=== PATIENT | female | born 1935 | race Caucasian/White ===

== ENCOUNTER 2017-12-20 19:00 | Emergency (ER) | payer MEDICARE ==
[2017-12-20 19:27] LABS: BASOPHILS % (AUTO) 0.7 % (0.0-5.0); EOSINOPHILS % (AUTO) 1.5 % (0.0-8.0); HEMATOCRIT 38.5 % (36-48); LYMPHOCYTES % (AUTO) 22.7 % (21.0-51.0); MEAN CORPUSCULAR HEMOGLOBIN 33.3 pg (27.0-33.0); MEAN CORPUSCULAR HGB CONC 33.7 g/dL (32.0-36.0); MONOCYTES % (AUTO) 6.5 % (3.0-13.0); NEUTROPHILS % (AUTO) 68.6 % (40.0-77.0); PLATELET COUNT (AUTO) 258 K/uL (130-400); RED BLOOD CELL COUNT(AUTO) 3.89 MIL/uL (4.00-5.50); WHITE BLOOD COUNT (AUTO) 6.8 K/uL (4.8-10.8)
[2017-12-20 19:42] LABS: CREATININE 1.4 mg/dL (0.5-1.5); INR 0.97 (0.85-1.15); PARTIAL THROMBOPLASTIN TIME 26.2 SEC (26.3-35.5); POTASSIUM 4.3 mmol/L (3.5-5.1); PROTHROMBIN TIME 10.2 SEC (9.6-11.6)
[2017-12-20 19:53] LABS: ALBUMIN 3.3 g/dL (3.5-5.0); BILIRUBIN,TOTAL 0.3 mg/dL (0.2-1.0); TOTAL PROTEIN, SERUM 6.7 g/dL (6.0-8.3)
[2017-12-20 20:15] LABS: B-TYPE NATRIURETIC PEPTIDE 34 pg/mL (0-100)
== END 2017-12-20 21:54 | disposition home or self-care (01) ==
LOC: EDH 19:00
DX: R55 Syncope and collapse (principal); I10 Essential (primary) hypertension; E78.5 Hyperlipidemia, unspecified; Z98.890 Other specified postprocedural states
CPT/HCPCS: 36415; 70450; 71045; 80053; 82550; 83874; 83880; 84484; 85025; 85610; 85730; 93005; 94761

== ENCOUNTER → 2019-10-07 | Outpatient (CLI) | payer OTHER | END | disposition home or self-care (01) | LOC: OIH 14:00 | PROVIDERS: ATTEND Internal Medicine Cardiovascular Disease | DX: Z13.6 Encounter for screening for cardiovascular disorders (principal) | CPT/HCPCS: 75571 ==

== ENCOUNTER 2022-05-12 16:41 | Emergency (ER) | payer MEDICARE ==
[~2022-05-12] VITALS: Ht 162.6 cm; Wt 4.7 kg
[~2022-05-12 16:41] MED LIST: ACET-2247 PO; BIMA2.5D6 OP; BRIM5DRO21 OP; BRINOS OD; CHOL500051 PO; ESCI20TA38 PO; METO25TA6 PO; ONDA-104 PO
[2022-05-12 18:05] LABS: BASOPHILS % (AUTO) 0.6 % (0.0-5.0); EOSINOPHILS % (AUTO) 2.1 % (0.0-8.0); HEMATOCRIT 34.5 % (36-48); LYMPHOCYTES % (AUTO) 48.5 % (21.0-51.0); MEAN CORPUSCULAR HGB CONC 31.3 g/dL (32.0-36.0); MEAN CORPUSCULAR VOLUME 95.8 fL (79-99); MONOCYTES % (AUTO) 7.7 % (3.0-13.0); NEUTROPHILS % (AUTO) 40.8 % (40.0-77.0); PLATELET COUNT (AUTO) 355 K/uL (130-400); RED CELL DISTRIBUTION WIDTH 14.6 % (11.0-15.5); WHITE BLOOD COUNT (AUTO) 9.5 K/uL (4.8-10.8)
[2022-05-12 18:13] LABS: CREATININE 0.9 mg/dL (0.5-1.5); POTASSIUM 4.1 mmol/L (3.5-5.1)
[2022-05-12 18:17] LABS: INR 0.97 (0.85-1.15); PROTHROMBIN TIME 10.6 SEC (9.6-11.6)
[2022-05-12 18:18] LABS: ALBUMIN 2.2 g/dL (3.5-5.0); PARTIAL THROMBOPLASTIN TIME 29.4 SEC (26.3-35.5); TOTAL PROTEIN, SERUM 5.6 g/dL (6.0-8.3)
[2022-05-12] MEDS ORDERED: SUCRALFATE 1 GM TABLET PO ONE (20:00)
[2022-05-12] MEDS ORDERED: PANTOPRAZOLE 40 MG/VIAL ONE (20:12)
[2022-05-12] MEDS ORDERED: SUCRALFATE 1 GM TABLET ONE (20:13)
[2022-05-12] MEDS ORDERED: PANTOPRAZOLE 40 MG/VIAL IVP STA (20:18)
[2022-05-12 20:49] LABS: APPEARANCE,URINE CLEAR (CLEAR); BILIRUBIN,URINE NEGATIVE (NEGATIVE); COLOR,URINE LIGHT-YELLOW (YELLOW); GLUCOSE, URINE (UA) NEGATIVE (NEGATIVE); KETONES,URINE NEGATIVE (NEGATIVE); LEUKOCYTE ESTERASE ,URINE 250 Leu/uL (NEGATIVE); NITRATE,URINE NEGATIVE (NEGATIVE); OCCULT BLOOD,URINE SMALL (NEGATIVE); PH,URINE 6.5 (5.0-8.0); PROTEIN,URINE 10 mg/dL (NEGATIVE); UROBILINOGEN,URINE 3 mg/dL (0.2-1.0)
[2022-05-12 20:52] LABS: BACTERIA,URINE MOD /HPF (None Seen); RBC,URINE 0-1 /HPF (0-1); SQUAMOUS EPITHELIAL CELL,UR RARE /HPF (0-2)
[2022-05-12] MEDS ORDERED: CEFTRIAXONE 1G VIAL IVP STA (22:18)
[2022-05-12] MEDS ORDERED: CEFTRIAXONE 1G VIAL ONE (22:23)
[2022-05-12] MEDS ORDERED: CEPH500B PO (22:24)
[2022-05-12] MEDS ORDERED: OMEP20TA20 PO (22:24)
[2022-05-12 22:53] VITALS: BP 136/52
== END 2022-05-12 23:49 ==
LOC: EDH 16:41
DX: N39.0 Urinary tract infection, site not specified (principal); K29.70 Gastritis, unspecified, without bleeding; E78.00 Pure hypercholesterolemia, unspecified; I10 Essential (primary) hypertension; Z79.899 Other long term (current) drug therapy
CPT/HCPCS: 99285; 96374; 96375; 82270; 80053; 85025; 85610; 85730; 87077; 87088; 87186; 81001; 36415; J0696; C9113

== ENCOUNTER 2022-05-18 17:31 | Emergency (ER) | payer MEDICARE ==
[~2022-05-18] VITALS: Ht 167.6 cm; Wt 76.2 kg
[~2022-05-18 17:31] MED LIST changes: +CEPH500B PO; +OMEP20TA20 PO
[2022-05-18] MEDS ORDERED: 0.9%NACL 1000ML 1,000 ML IV SCH ×2 (18:00→19:30)
[2022-05-18 18:25] LABS: BASOPHILS % (AUTO) 0.6 % (0.0-5.0); EOSINOPHILS % (AUTO) 2.5 % (0.0-8.0); HEMATOCRIT 37.9 % (36-48); LYMPHOCYTES % (AUTO) 46.7 % (21.0-51.0); MEAN CORPUSCULAR HEMOGLOBIN 30.1 pg (27.0-33.0); MEAN CORPUSCULAR HGB CONC 31.4 g/dL (32.0-36.0); MEAN CORPUSCULAR VOLUME 95.7 fL (79-99); MONOCYTES % (AUTO) 7.6 % (3.0-13.0); NEUTROPHILS % (AUTO) 42.4 % (40.0-77.0); PLATELET COUNT (AUTO) 399 K/uL (130-400); RED BLOOD CELL COUNT(AUTO) 3.96 MIL/uL (4.00-5.50); RED CELL DISTRIBUTION WIDTH 14.4 % (11.0-15.5); WHITE BLOOD COUNT (AUTO) 10.1 K/uL (4.8-10.8)
[2022-05-18 18:36] LABS: POTASSIUM 3.8 mmol/L (3.5-5.1)
[2022-05-18 18:47] LABS: ALBUMIN 2.6 g/dL (3.5-5.0); TOTAL PROTEIN, SERUM 6.4 g/dL (6.0-8.3)
[2022-05-18 18:54] LABS: APPEARANCE,URINE TURBID (CLEAR); BILIRUBIN,URINE NEGATIVE (NEGATIVE); COLOR,URINE LIGHT-ORANGE (YELLOW); GLUCOSE, URINE (UA) NEGATIVE (NEGATIVE); KETONES,URINE NEGATIVE (NEGATIVE); LEUKOCYTE ESTERASE ,URINE 500 Leu/uL (NEGATIVE); NITRATE,URINE NEGATIVE (NEGATIVE); OCCULT BLOOD,URINE MODERATE (NEGATIVE); PH,URINE 5.5 (5.0-8.0); PROTEIN,URINE 50 mg/dL (NEGATIVE); UROBILINOGEN,URINE 0.2 mg/dL (0.2-1.0)
[2022-05-18 19:01] LABS: BACTERIA,URINE MOD /HPF (None Seen); MUCUS,URINE RARE LPF (None Seen); RBC,URINE 26-50 /HPF (0-1); SQUAMOUS EPITHELIAL CELL,UR MANY /HPF (0-2); WBC,URINE >100 /HPF (0-1); YEAST,URINE BUDDING FEW /HPF (None Seen)
[2022-05-18] MEDS ORDERED: CEFTRIAXONE 1G VIAL IVP STA (20:46)
[2022-05-18] MEDS ORDERED: CEPH500B PO (20:49)
[2022-05-18] MEDS: LINEZOLID 600 MG/ISO-OSM 300 ML IV SCH ×2 (21:00→21:01)
[2022-05-18] MEDS ORDERED: [UNRECOGNIZED DRUG - OTHER] IV SCH (21:08)
[2022-05-18] MEDS ORDERED: GENTAMICIN SULFATE IV SCH (21:08)
[2022-05-18] MEDS ORDERED: MACR100 PO (21:12)
[2022-05-18 22:12] VITALS: BP 145/53
== END 2022-05-18 23:22 | disposition home or self-care (01) ==
LOC: EDH 17:31
DX: S40.021A Contusion of right upper arm, initial encounter (principal); N39.0 Urinary tract infection, site not specified; I10 Essential (primary) hypertension; E78.00 Pure hypercholesterolemia, unspecified; R11.10 Vomiting, unspecified; Z79.899 Other long term (current) drug therapy; W18.39XA Other fall on same level, initial encounter; Y93.89 Activity, other specified; Y92.89 Other specified places as the place of occurrence of the external cause; Y99.8 Other external cause status
CPT/HCPCS: 99285; 84484; 80053; 83690; 85025; 87077; 87088; 87186; 82270; 81001; 36415; 71045; 70450; 72125; 96365; 96366; 96361; 93005; J7030; J1580; J0696; J2020

== ENCOUNTER 2022-06-01 12:16 | Emergency (ER) | payer MEDICARE ==
[~2022-06-01] VITALS: Ht 167.6 cm; Wt 79.4 kg
[~2022-06-01 12:16] MED LIST changes: +MACR100 PO
[2022-06-01] MEDS ORDERED: 0.9% NACL 500ML IV.SOLN 500 ML IV ONE (14:00)
[2022-06-01 14:27] LABS: BASOPHILS % (AUTO) 0.6 % (0.0-5.0); EOSINOPHILS % (AUTO) 2.8 % (0.0-8.0); HEMATOCRIT 36.7 % (36-48); MEAN CORPUSCULAR HEMOGLOBIN 30.1 pg (27.0-33.0); MEAN CORPUSCULAR HGB CONC 31.6 g/dL (32.0-36.0); MEAN CORPUSCULAR VOLUME 95.1 fL (79-99); MONOCYTES % (AUTO) 8.5 % (3.0-13.0); PLATELET COUNT (AUTO) 295 K/uL (130-400); RED BLOOD CELL COUNT(AUTO) 3.86 MIL/uL (4.00-5.50); RED CELL DISTRIBUTION WIDTH 14.6 % (11.0-15.5); WHITE BLOOD COUNT (AUTO) 8.3 K/uL (4.8-10.8)
[2022-06-01 14:29] LABS: APPEARANCE,URINE CLOUDY (CLEAR); BILIRUBIN,URINE NEGATIVE (NEGATIVE); COLOR,URINE LIGHT-YELLOW (YELLOW); GLUCOSE, URINE (UA) NEGATIVE (NEGATIVE); KETONES,URINE NEGATIVE (NEGATIVE); LEUKOCYTE ESTERASE ,URINE 500 Leu/uL (NEGATIVE); NITRATE,URINE NEGATIVE (NEGATIVE); OCCULT BLOOD,URINE SMALL (NEGATIVE); PH,URINE 6.5 (5.0-8.0); PROTEIN,URINE 20 mg/dL (NEGATIVE); UROBILINOGEN,URINE 0.2 mg/dL (0.2-1.0)
[2022-06-01 14:40] LABS: BACTERIA,URINE FEW /HPF (None Seen); MUCUS,URINE RARE LPF (None Seen); SQUAMOUS EPITHELIAL CELL,UR FEW /HPF (0-2); WBC,URINE TNTC /HPF (0-1); YEAST,URINE BUDDING FEW /HPF (None Seen)
[2022-06-01 14:43] LABS: CREATININE 1.1 mg/dL (0.5-1.5); POTASSIUM 3.6 mmol/L (3.5-5.1)
[2022-06-01 14:50] LABS: ALBUMIN 2.6 g/dL (3.5-5.0); TOTAL PROTEIN, SERUM 6.6 g/dL (6.0-8.3)
[2022-06-01 14:55] LABS: MAGNESIUM 1.9 mg/dL (1.80-2.40)
[2022-06-01] MEDS ORDERED: MACR100 PO (18:31)
[2022-06-01 19:00] VITALS: BP 132/78
== END 2022-06-01 19:09 | disposition home or self-care (01) ==
LOC: EDH 12:16
DX: N39.0 Urinary tract infection, site not specified (principal); I95.9 Hypotension, unspecified; R13.10 Dysphagia, unspecified; F02.80 Dementia in other diseases classified elsewhere, unspecified severity, without behavioral disturbance, psychotic disturbance, mood disturbance, and anxiety; M19.90 Unspecified osteoarthritis, unspecified site; Z79.899 Other long term (current) drug therapy; Z20.822 Contact with and (suspected) exposure to COVID-19
CPT/HCPCS: 99285; 70450; 71045; 87635; 83735; 84484; 80053; 85025; 87088; 83605; 81001; 36415; 93005; C9803; 87077; 87186

== ENCOUNTER 2023-01-03 12:44 | Inpatient (IN) | payer MEDICARE ==
[~2023-01-03] VITALS: Ht 172.7 cm; Wt 84.0 kg
[~2023-01-03 12:44] MED LIST changes: -ACET-2247 PO; +BENZ-226 PO; +BIMA12.5OS OD; -BIMA2.5D6 OP; +BISA10SU11 RC; -BRIM5DRO21 OP; -BRINOS OD; -CEPH500B PO; +CHOL500045 PO; -CHOL500051 PO; +DOCU-116 PO; -ESCI20TA38 PO; +FA/M1TAB31 PO; +LORA-192 PO; -MACR100 PO; -METO25TA6 PO; +MORP-108 PO; +OMEP-420 PO; -OMEP20TA20 PO; -ONDA-104 PO; +PROM25TA7 PO; +QUET25TA36 PO; +[UNRECOGNIZED DRUG - CODE] PO
[2023-01-03 13:52] LABS: BASOPHILS # (AUTO) 0.02 K/uL (0.00-0.20); BASOPHILS % (AUTO) 0.2 % (0.0-5.0); EOSINOPHILS # (AUTO) 0.22 K/uL (0.00-0.70); HEMATOCRIT 28.3 % (36-48); IMMATURE GRANULOCYTE ABSOLUTE 0.03 K/uL (0-1); LYMPHOCYTES # (AUTO) 2.3 K/uL (1.0-4.8); LYMPHOCYTES % (AUTO) 20.9 % (21.0-51.0); MEAN CORPUSCULAR HEMOGLOBIN 31.4 pg (27.0-33.0); MEAN CORPUSCULAR HGB CONC 32.2 g/dL (32.0-36.0); MEAN CORPUSCULAR VOLUME 97.6 fL (79-99); MONOCYTES # (AUTO) 0.9 K/uL (0.1-1.0); NEUTROPHILS # (AUTO) 7.7 K/uL (1.8-7.7); NEUTROPHILS % (AUTO) 68.6 % (40.0-77.0); PLATELET COUNT (AUTO) 381 K/uL (130-400); RED CELL DISTRIBUTION WIDTH 14.4 % (11.0-15.5); WHITE BLOOD COUNT (AUTO) 11.2 K/uL (4.8-10.8)
[2023-01-03 13:57] LABS: POTASSIUM 4.6 mmol/L (3.5-5.1)
[2023-01-03] MEDS ORDERED: PANTOPRAZOLE 80 MG in 0.9%NACL 100ML IV SCH (15:00)
[2023-01-03] MEDS ORDERED: METOCLOPRAMIDE 10 MG/2 ML VIAL IVP ONE (15:00)
[2023-01-03] MEDS ORDERED: PANTOPRAZOLE 40 MG/VIAL IVP ONE (15:00)
[2023-01-03] MEDS ORDERED: LACTATED RINGERS 1000ML 1,000 ML IV ONE (15:00)
[2023-01-03] MEDS: PANTOPRAZOLE 40MG INJ 80 MG in 0.9%NACL 100ML 100 ML IVP SCH (16:00)
[2023-01-03] MEDS ORDERED: ONDANSETRON 4MG INJ IVP PRN (16:00)
[2023-01-03] MEDS ORDERED: ACETAMINOPHEN 325 MG TAB PO PRN (16:00)
[2023-01-03 16:14] LABS: ALBUMIN 2.1 g/dL (3.5-5.0); BILIRUBIN,DIRECT 0.7 mg/dL (0.0-0.3); TOTAL PROTEIN, SERUM 7.4 g/dL (6.0-8.3)
[2023-01-03] MEDS ORDERED: MORPHINE 2 MG SYG IV PRN (16:30)
[2023-01-03] MEDS ORDERED: CEFEPIME HCL 2 GM VIAL IVPB SCH (16:30)
[2023-01-03] MEDS ORDERED: NITROGLYCERIN 0.4 MG SL TAB SL PRN (16:30)
[2023-01-03] MEDS: LACTATED RINGERS 1000ML 1,000 ML IV SCH (16:32)
[2023-01-03] MEDS: CEFEPIME HCL 1 GM VIAL IVPB SCH (16:34)
[2023-01-03] MEDS ORDERED: GUAI100L37 PO (17:15)
[2023-01-03] MEDS ORDERED: QUET25TA PO (17:15)
[2023-01-03] MEDS ORDERED: CHOL500051 PO (17:15)
[2023-01-03] MEDS ORDERED: ACET325T51 PO ×2 (17:15)
[2023-01-03] MEDS ORDERED: TRAM50TA4 PO (17:15)
[2023-01-03] MEDS ORDERED: BRIM5DRO21 OU (17:15)
[2023-01-03] MEDS ORDERED: CEFA2PLA9 IV (17:15)
[2023-01-03] MEDS ORDERED: DOCU240C25 PO (17:15)
[2023-01-03] MEDS ORDERED: PROM25TA7 PO (17:15)
[2023-01-03] MEDS ORDERED: ACET-2079 PO (17:15)
[2023-01-03] MEDS ORDERED: BRIN15DR4 OU (17:15)
[2023-01-03 19:57] LABS: HEMATOCRIT 24.8 % (36-48)
[2023-01-03 21:10] VITALS: BP 145/63; PULSE 73; RESP 21
[2023-01-03 21:30] VITALS: O2SAT 95
[2023-01-03] MEDS ORDERED: COMPOUND IV REFRIGERATED 1 EACH IVSOLN MISC PRN (23:00)
[2023-01-04] VITALS: BP 101/46; PULSE 72; RESP 16
[2023-01-04] MEDS: LORAZEPAM 2 MG/ML 1 ML VIAL IVP PRN (00:04)
[2023-01-04] MEDS: PANTOPRAZOLE 40MG INJ 80 MG in 0.9%NACL 100ML 100 ML IVP SCH ×3 (00:06→22:27)
[2023-01-04 02:15] LABS: HEMATOCRIT 24.3 % (36-48)
[2023-01-04 04:00] VITALS: BP 97/51; PULSE 72; RESP 17
[2023-01-04] MEDS: CEFEPIME HCL 1 GM VIAL IVPB SCH ×2 (04:26→17:08)
[2023-01-04] MEDS: LACTATED RINGERS 1000ML 1,000 ML IV SCH ×3 (04:26→22:27)
[2023-01-04 08:00] VITALS: BP 142/56; PULSE 47; RESP 17
[2023-01-04 08:10] LABS: HEMATOCRIT 23.2 % (36-48)
[2023-01-04 12:00] VITALS: BP 111/63; PULSE 66; RESP 18
[2023-01-04 16:00] VITALS: BP 138/69; PULSE 68; RESP 17
[2023-01-04 16:54] LABS: HEMATOCRIT 25.3 % (36-48)
[2023-01-04 19:36] LABS: BILIRUBIN,URINE NEGATIVE (NEGATIVE); COLOR,URINE LIGHT-YELLOW (YELLOW); GLUCOSE, URINE (UA) 70 mg/dL (NEGATIVE); KETONES,URINE NEGATIVE (NEGATIVE); LEUKOCYTE ESTERASE ,URINE 75 Leu/uL (NEGATIVE); NITRATE,URINE NEGATIVE (NEGATIVE); OCCULT BLOOD,URINE LARGE (NEGATIVE); PH,URINE 7.5 (5.0-8.0); PROTEIN,URINE 100 mg/dL (NEGATIVE); UROBILINOGEN,URINE 0.2 mg/dL (0.2-1.0)
[2023-01-04 19:38] LABS: ADD UA MICROSCOPIC YES; APPEARANCE,URINE HAZY (CLEAR); CHLORIDE,URINE RANDOM 112 mmol/L (110-250); POTASSIUM,URINE RANDOM < 9 mmol/L (25-125); SODIUM,URINE RANDOM 130 mmol/l (40-220)
[2023-01-04 19:40] LABS: BACTERIA,URINE FEW /HPF (None Seen); SQUAMOUS EPITHELIAL CELL,UR RARE /HPF (0-2)
[2023-01-04 20:00] VITALS: BP 138/54; PULSE 70; RESP 20
[2023-01-04 20:18] LABS: HEMATOCRIT 25.3 % (36-48)
[2023-01-05] VITALS (7 sets, daily range): BP systolic 109–148; BP diastolic 58–68; PULSE 72–77; RESP 16–22; O2SAT 91–94
[2023-01-05] MEDS: LORAZEPAM 2 MG/ML 1 ML VIAL IVP PRN (03:22)
[2023-01-05] MEDS: CEFEPIME HCL 1 GM VIAL IVPB SCH ×2 (03:32→17:32)
[2023-01-05 05:56] LABS: BASOPHILS # (AUTO) 0.04 K/uL (0.00-0.20); BASOPHILS % (AUTO) 0.5 % (0.0-5.0); EOSINOPHILS # (AUTO) 0.55 K/uL (0.00-0.70); EOSINOPHILS % (AUTO) 6.3 % (0.0-8.0); HEMATOCRIT 26.2 % (36-48); IMMATURE GRANULOCYTE ABSOLUTE 0.04 K/uL (0-1); LYMPHOCYTES # (AUTO) 2.3 K/uL (1.0-4.8); LYMPHOCYTES % (AUTO) 25.9 % (21.0-51.0); MEAN CORPUSCULAR HEMOGLOBIN 30.6 pg (27.0-33.0); MEAN CORPUSCULAR HGB CONC 30.9 g/dL (32.0-36.0); MEAN CORPUSCULAR VOLUME 98.9 fL (79-99); MONOCYTES # (AUTO) 0.9 K/uL (0.1-1.0); MONOCYTES % (AUTO) 9.7 % (3.0-13.0); NEUTROPHILS % (AUTO) 57.1 % (40.0-77.0); PLATELET COUNT (AUTO) 383 K/uL (130-400); RED BLOOD CELL COUNT(AUTO) 2.65 MIL/uL (4.00-5.50); RED CELL DISTRIBUTION WIDTH 13.8 % (11.0-15.5); WHITE BLOOD COUNT (AUTO) 8.8 K/uL (4.8-10.8)
[2023-01-05 06:22] LABS: CREATININE 1.2 mg/dL (0.5-1.5); PHOSPHORUS 2.4 mg/dL (2.5-4.9); POTASSIUM 3.7 mmol/L (3.5-5.1)
[2023-01-05 06:27] LABS: % IRON SATURATION 25.6 % (22-44)
[2023-01-05 06:39] LABS: BILIRUBIN,TOTAL 0.7 mg/dL (0.2-1.0); MAGNESIUM 1.6 mg/dL (1.80-2.40); URIC ACID 4.5 mg/dL (2.6-7.2)
[2023-01-05] MEDS ORDERED: KCL 20 MEQ ERTAB PO PRN (08:00)
[2023-01-05] MEDS: PANTOPRAZOLE 40MG INJ 80 MG in 0.9%NACL 100ML 100 ML IVP SCH (08:00)
[2023-01-05] MEDS ORDERED: POTASSIUM CHLORIDE 20MEQ/100ML 100 ML IV PRN (08:00)
[2023-01-05] MEDS: LACTATED RINGERS 1000ML 1,000 ML IV SCH ×3 (08:51→21:58)
[2023-01-05] MEDS: POTASSIUM CHLORIDE 10% ELIXIR 20 MEQ/15 ML UDCUP PO PRN ×2 (08:52→15:33)
[2023-01-05] MEDS: MAGNESIUM 2GM PREMIX 50ML 50 ML IV PRN (08:53)
[2023-01-05] MEDS: SUCRALFATE 1 GM TABLET PO SCH ×3 (10:47→21:56)
[2023-01-05] MEDS: BRIMONIDINE TARTRATE OU SCH (21:00)
[2023-01-05] MEDS: TIMOLOL OU SCH (21:00)
[2023-01-05] MEDS: PANTOPRAZOLE 40 MG TAB DR PO SCH (21:56)
[2023-01-05] MEDS: BRINZOLAMIDE 1% 10ML DROPS.SUSP OU SCH (21:57)
[2023-01-05] MEDS: QUETIAPINE FUMARATE 25 MG TAB PO SCH (21:57)
[2023-01-06] VITALS: BP 158/78; PULSE 81; RESP 24
[2023-01-06] MEDS: CEFEPIME HCL 1 GM VIAL IVPB SCH ×2 (03:42→16:37)
[2023-01-06] MEDS: LORAZEPAM 2 MG/ML 1 ML VIAL IVP PRN (03:42)
[2023-01-06] MEDS: SUCRALFATE 1 GM TABLET PO SCH ×4 (03:42→21:32)
[2023-01-06 04:10] LABS: BASOPHILS # (AUTO) 0.04 K/uL (0.00-0.20); BASOPHILS % (AUTO) 0.4 % (0.0-5.0); EOSINOPHILS # (AUTO) 0.21 K/uL (0.00-0.70); EOSINOPHILS % (AUTO) 1.9 % (0.0-8.0); HEMATOCRIT 24.3 % (36-48); IMMATURE GRANULOCYTE ABSOLUTE 0.06 K/uL (0-1); LYMPHOCYTES # (AUTO) 2.5 K/uL (1.0-4.8); MEAN CORPUSCULAR HEMOGLOBIN 31.3 pg (27.0-33.0); MEAN CORPUSCULAR HGB CONC 32.5 g/dL (32.0-36.0); MEAN CORPUSCULAR VOLUME 96.4 fL (79-99); MONOCYTES # (AUTO) 1.2 K/uL (0.1-1.0); MONOCYTES % (AUTO) 10.6 % (3.0-13.0); NEUTROPHILS # (AUTO) 6.9 K/uL (1.8-7.7); NEUTROPHILS % (AUTO) 63.5 % (40.0-77.0); NUCLEATED RED BLOOD CELLS 0.2 % (0.0-0.19); PLATELET COUNT (AUTO) 448 K/uL (130-400); RED BLOOD CELL COUNT(AUTO) 2.52 MIL/uL (4.00-5.50); WHITE BLOOD COUNT (AUTO) 10.9 K/uL (4.8-10.8)
[2023-01-06 04:16] VITALS: BP 109/57; PULSE 64; RESP 22
[2023-01-06 04:20] LABS: CREATININE 1.2 mg/dL (0.5-1.5); POTASSIUM 4.1 mmol/L (3.5-5.1)
[2023-01-06] MEDS: MAGNESIUM 2GM PREMIX 50ML 50 ML IV PRN (06:56)
[2023-01-06 08:00] VITALS: BP 117/62; PULSE 87; RESP 20; O2SAT 95
[2023-01-06] MEDS: PANTOPRAZOLE 40 MG TAB DR PO SCH ×2 (08:35→21:32)
[2023-01-06] MEDS: BRINZOLAMIDE 1% 10ML DROPS.SUSP OU SCH ×2 (08:39→21:32)
[2023-01-06] MEDS: Cholecalciferol (Vitamin D3) 125 MCG PO SCH (08:39)
[2023-01-06] MEDS: BRIMONIDINE TARTRATE OU SCH ×2 (08:42→21:00)
[2023-01-06] MEDS: TIMOLOL OU SCH ×2 (08:42→21:00)
[2023-01-06] MEDS ORDERED: [UNRECOGNIZED DRUG - OTHER] PO SCH (09:00)
[2023-01-06] MEDS: BIMATOPROST OD SCH (09:00)
[2023-01-06 12:00] VITALS: BP 111/53; PULSE 71; RESP 18
[2023-01-06] MEDS ORDERED: EPOETIN ALFA-EPBX (NON-ESRD) 10,000 UNIT/ML VIAL SQ SCH (13:00)
[2023-01-06] MEDS: LACTATED RINGERS 1000ML 1,000 ML IV SCH (14:00)
[2023-01-06 16:00] VITALS: BP 122/69; PULSE 75; RESP 18
[2023-01-06 19:00] VITALS: BP 110/58; PULSE 79; RESP 38
[2023-01-06] MEDS: QUETIAPINE FUMARATE 25 MG TAB PO SCH (21:32)
[2023-01-07] VITALS (7 sets, daily range): BP systolic 97–144; BP diastolic 45–60; PULSE 69–76; RESP 16–31; O2SAT 95–96
[2023-01-07] MEDS: LACTATED RINGERS 1000ML 1,000 ML IV SCH ×3 (02:17→12:48)
[2023-01-07] MEDS: SUCRALFATE 1 GM TABLET PO SCH ×4 (03:30→21:39)
[2023-01-07 03:50] LABS: BASOPHILS # (AUTO) 0.04 K/uL (0.00-0.20); BASOPHILS % (AUTO) 0.4 % (0.0-5.0); EOSINOPHILS # (AUTO) 0.37 K/uL (0.00-0.70); HEMATOCRIT 22.9 % (36-48); IMMATURE GRANULOCYTE ABSOLUTE 0.08 K/uL (0-1); LYMPHOCYTES # (AUTO) 2.6 K/uL (1.0-4.8); LYMPHOCYTES % (AUTO) 28.2 % (21.0-51.0); MEAN CORPUSCULAR HGB CONC 31.4 g/dL (32.0-36.0); MEAN CORPUSCULAR VOLUME 98.7 fL (79-99); MONOCYTES # (AUTO) 0.9 K/uL (0.1-1.0); MONOCYTES % (AUTO) 9.6 % (3.0-13.0); NEUTROPHILS # (AUTO) 5.3 K/uL (1.8-7.7); NEUTROPHILS % (AUTO) 56.9 % (40.0-77.0); PLATELET COUNT (AUTO) 382 K/uL (130-400); RED BLOOD CELL COUNT(AUTO) 2.32 MIL/uL (4.00-5.50); RED CELL DISTRIBUTION WIDTH 14.5 % (11.0-15.5); WHITE BLOOD COUNT (AUTO) 9.3 K/uL (4.8-10.8)
[2023-01-07 04:02] LABS: ALBUMIN 1.8 g/dL (3.5-5.0); BILIRUBIN,TOTAL 0.4 mg/dL (0.2-1.0); CREATININE 1.1 mg/dL (0.5-1.5); MAGNESIUM 2.1 mg/dL (1.80-2.40); PHOSPHORUS 2.4 mg/dL (2.5-4.9); TOTAL PROTEIN, SERUM 5.5 g/dL (6.0-8.3)
[2023-01-07] MEDS: CEFEPIME HCL 1 GM VIAL IVPB SCH (04:55)
[2023-01-07] MEDS: BRIMONIDINE TARTRATE OU SCH ×2 (09:00→19:35)
[2023-01-07] MEDS: Cholecalciferol (Vitamin D3) 125 MCG PO SCH (09:00)
[2023-01-07] MEDS: BIMATOPROST OD SCH (09:00)
[2023-01-07] MEDS: TIMOLOL OU SCH ×2 (09:00→19:35)
[2023-01-07] MEDS: PANTOPRAZOLE 40 MG TAB DR PO SCH ×2 (09:34→21:34)
[2023-01-07] MEDS: BRINZOLAMIDE 1% 10ML DROPS.SUSP OU SCH ×2 (09:35→21:35)
[2023-01-07] MEDS: ZOSYN 3.375GM +NS 50ML IV SCH ×2 (13:16→21:35)
[2023-01-07] MEDS: QUETIAPINE FUMARATE 25 MG TAB PO SCH (21:35)
[2023-01-08] VITALS (8 sets, daily range): BP systolic 126–159; BP diastolic 58–94; PULSE 67–77; RESP 16–18; O2SAT 96–97
[2023-01-08] MEDS: LORAZEPAM 2 MG/ML 1 ML VIAL IVP PRN ×2 (00:20→22:37)
[2023-01-08] MEDS: SUCRALFATE 1 GM TABLET PO SCH ×4 (02:34→21:23)
[2023-01-08] MEDS: ZOSYN 3.375GM +NS 50ML IV SCH ×3 (04:04→21:23)
[2023-01-08] MEDS: LACTATED RINGERS 1000ML 1,000 ML IV SCH ×2 (05:27→19:52)
[2023-01-08 08:40] LABS: BASOPHILS # (AUTO) 0.03 K/uL (0.00-0.20); BASOPHILS % (AUTO) 0.4 % (0.0-5.0); EOSINOPHILS # (AUTO) 0.38 K/uL (0.00-0.70); EOSINOPHILS % (AUTO) 4.6 % (0.0-8.0); HEMATOCRIT 26.1 % (36-48); IMMATURE GRANULOCYTE ABSOLUTE 0.07 K/uL (0-1); LYMPHOCYTES # (AUTO) 1.8 K/uL (1.0-4.8); LYMPHOCYTES % (AUTO) 21.5 % (21.0-51.0); MEAN CORPUSCULAR HEMOGLOBIN 30.7 pg (27.0-33.0); MEAN CORPUSCULAR HGB CONC 31.4 g/dL (32.0-36.0); MEAN CORPUSCULAR VOLUME 97.8 fL (79-99); MONOCYTES # (AUTO) 0.6 K/uL (0.1-1.0); MONOCYTES % (AUTO) 7.1 % (3.0-13.0); NEUTROPHILS # (AUTO) 5.4 K/uL (1.8-7.7); NEUTROPHILS % (AUTO) 65.6 % (40.0-77.0); PLATELET COUNT (AUTO) 457 K/uL (130-400); RED BLOOD CELL COUNT(AUTO) 2.67 MIL/uL (4.00-5.50); RED CELL DISTRIBUTION WIDTH 14.5 % (11.0-15.5); WHITE BLOOD COUNT (AUTO) 8.3 K/uL (4.8-10.8)
[2023-01-08 08:56] LABS: BILIRUBIN,TOTAL 0.5 mg/dL (0.2-1.0); CREATININE 1.4 mg/dL (0.5-1.5); POTASSIUM 3.5 mmol/L (3.5-5.1); TOTAL PROTEIN, SERUM 5.9 g/dL (6.0-8.3)
[2023-01-08] MEDS: Cholecalciferol (Vitamin D3) 125 MCG PO SCH (09:00)
[2023-01-08] MEDS: BRIMONIDINE TARTRATE OU SCH ×2 (09:00→21:00)
[2023-01-08] MEDS: BIMATOPROST OD SCH (09:00)
[2023-01-08] MEDS: TIMOLOL OU SCH ×2 (09:00→21:00)
[2023-01-08] MEDS: BRINZOLAMIDE 1% 10ML DROPS.SUSP OU SCH ×2 (09:00→21:00)
[2023-01-08] MEDS: PANTOPRAZOLE 40 MG TAB DR PO SCH ×2 (10:05→21:23)
[2023-01-08 18:02] LABS: INR 0.97 (0.85-1.15); PROTHROMBIN TIME 11.3 SEC (9.6-11.6)
[2023-01-08] MEDS: QUETIAPINE FUMARATE 25 MG TAB PO SCH (21:23)
[2023-01-09] MEDS: LACTATED RINGERS 1000ML 1,000 ML IV SCH ×2 (03:37→12:00)
[2023-01-09] MEDS: SUCRALFATE 1 GM TABLET PO SCH ×2 (03:37→09:20)
[2023-01-09 04:00] VITALS: BP 169/72; PULSE 76; RESP 18
[2023-01-09] MEDS: ZOSYN 3.375GM +NS 50ML IV SCH (04:31)
[2023-01-09] MEDS: LORAZEPAM 2 MG/ML 1 ML VIAL IVP PRN (05:46)
[2023-01-09] MEDS: BIMATOPROST OD SCH (07:56)
[2023-01-09] MEDS: BRINZOLAMIDE 1% 10ML DROPS.SUSP OU SCH (07:56)
[2023-01-09] MEDS: BRIMONIDINE TARTRATE OU SCH (07:56)
[2023-01-09] MEDS: Cholecalciferol (Vitamin D3) 125 MCG PO SCH (07:56)
[2023-01-09] MEDS: TIMOLOL OU SCH (07:56)
[2023-01-09 08:00] VITALS: BP 106/43; PULSE 69; RESP 18; O2SAT 95
[2023-01-09] MEDS: PANTOPRAZOLE 40 MG TAB DR PO SCH (09:19)
[2023-01-09 12:02] VITALS: BP 146/95; PULSE 64; RESP 18
== END 2023-01-09 15:45 | DRG 377 ==
LOC: EDH 12:44 → EDHIP 16:04 → 4BH 20:57
PROVIDERS: ADMIT Hospitalist; ATTEND Hospitalist
DX: K92.0 Hematemesis (principal); N17.0 Acute kidney failure with tubular necrosis; N13.6 Pyonephrosis; D64.9 Anemia, unspecified; E86.0 Dehydration; R13.10 Dysphagia, unspecified; E78.5 Hyperlipidemia, unspecified; G30.9 Alzheimer's disease, unspecified; F02.80 Dementia in other diseases classified elsewhere, unspecified severity, without behavioral disturbance, psychotic disturbance, mood disturbance, and anxiety; I10 Essential (primary) hypertension; Z96.612 Presence of left artificial shoulder joint; Z96.651 Presence of right artificial knee joint; E66.9 Obesity, unspecified; F41.9 Anxiety disorder, unspecified; K21.9 Gastro-esophageal reflux disease without esophagitis; Z74.01 Bed confinement status; Z87.440 Personal history of urinary (tract) infections; Z68.28 Body mass index [BMI] 28.0-28.9, adult
CPT/HCPCS: 36415; 71045; 76770; 80048; 80051; 80053; 80076; 81001; 82270; 82306; 82570; 82728; 83540; 83550; 83605; 83690; 83735; 83935; 84100; 84145; 84484; 84550; 85014; 85018; 85025; 85610; 86850; 86900; 86901; 87088; 92610; 93005; C1894; C9113; G0378; J0692; J2060; J2270; J2543; J2765; J3475; J7120; Q5106

== ENCOUNTER 2023-01-11 12:32 | Observation (INO) | payer MEDICARE ==
[~2023-01-11] VITALS: Ht 172.7 cm; Wt 81.8 kg
[2023-01-11] VITALS (19 sets, daily range): BP systolic 132–154; BP diastolic 51–80; PULSE 64–70; RESP 16–20; O2SAT 96–97
[~2023-01-11 12:32] MED LIST changes: +ACET325T51 PO; +BRIM5DRO21 OU; +BRIN15DR4 OU; -CHOL500045 PO; +CHOL500051 PO; +DOCU240C25 PO; +GUAI100L37 PO; -LORA-192 PO; -MORP-108 PO; +QUET25TA PO; -QUET25TA36 PO; -[UNRECOGNIZED DRUG - CODE] PO
[2023-01-11 13:30] LABS: BASOPHILS # (AUTO) 0.02 K/uL (0.00-0.20); BASOPHILS % (AUTO) 0.2 % (0.0-5.0); EOSINOPHILS # (AUTO) 0.11 K/uL (0.00-0.70); EOSINOPHILS % (AUTO) 1.2 % (0.0-8.0); HEMATOCRIT 27.4 % (36-48); IMMATURE GRANULOCYTE ABSOLUTE 0.06 K/uL (0-1); LYMPHOCYTES % (AUTO) 32.3 % (21.0-51.0); MEAN CORPUSCULAR HEMOGLOBIN 30.9 pg (27.0-33.0); MEAN CORPUSCULAR VOLUME 99.6 fL (79-99); MONOCYTES # (AUTO) 0.8 K/uL (0.1-1.0); MONOCYTES % (AUTO) 8.2 % (3.0-13.0); NEUTROPHILS # (AUTO) 5.4 K/uL (1.8-7.7); NEUTROPHILS % (AUTO) 57.5 % (40.0-77.0); PLATELET COUNT (AUTO) 546 K/uL (130-400); RED BLOOD CELL COUNT(AUTO) 2.75 MIL/uL (4.00-5.50); RED CELL DISTRIBUTION WIDTH 14.7 % (11.0-15.5); WHITE BLOOD COUNT (AUTO) 9.4 K/uL (4.8-10.8)
[2023-01-11 13:40] LABS: INR 0.95 (0.85-1.15); PROTHROMBIN TIME 11.1 SEC (9.6-11.6)
[2023-01-11 13:41] LABS: CREATININE 1.3 mg/dL (0.5-1.5); POTASSIUM 4.1 mmol/L (3.5-5.1)
[2023-01-11 13:46] LABS: ALBUMIN 2.1 g/dL (3.5-5.0); BILIRUBIN,TOTAL 0.4 mg/dL (0.2-1.0); TOTAL PROTEIN, SERUM 6.4 g/dL (6.0-8.3)
[2023-01-11] MEDS ORDERED: ZOSY3375FZ IV (15:00)
[2023-01-11] MEDS ORDERED: PROM25TA7 PO (15:00)
[2023-01-11] MEDS ORDERED: BIMA12.5OS OD (15:00)
[2023-01-11] MEDS ORDERED: PANT40GR PO (15:00)
[2023-01-11] MEDS ORDERED: FOLI1 PO (15:00)
[2023-01-11] MEDS ORDERED: LORA0.5T83 PO (15:00)
[2023-01-11] MEDS ORDERED: GUAI100L37 PO (15:00)
[2023-01-11] MEDS ORDERED: CYAN100099 PO (15:00)
[2023-01-11] MEDS ORDERED: MORPHINE 2 MG SYG IVP PRN ×2 (15:00→15:30)
[2023-01-11] MEDS ORDERED: SUCR1TAB2 PO (15:00)
[2023-01-11] MEDS: 0.9%NACL 1000ML 1,000 ML IV SCH (15:07)
[2023-01-11] MEDS: ZOSYN 3.375GM +NS 50ML IV SCH ×2 (15:10→23:09)
[2023-01-11] MEDS ORDERED: ONDANSETRON 4MG INJ IVP PRN (15:30)
[2023-01-11] MEDS ORDERED: ACETAMINOPHEN 500 MG TABLET PO PRN (15:30)
[2023-01-11] MEDS ORDERED: MAGNESIUM 2GM PREMIX 50ML 50 ML IV SCH ×2 (15:30)
[2023-01-11] MEDS: PANTOPRAZOLE 40 MG/VIAL IVP SCH (15:32)
[2023-01-11 15:46] LABS: HEMOGLOBIN A1C 5.1 % (4.0-6.0)
[2023-01-11] MEDS ORDERED: KETAMINE 50MG/ML SYRINGE 50 MG/ML DISP.SYRIN ONE (17:39)
[2023-01-11] MEDS ORDERED: PROPOFOL 10 MG/ML 20ML VIAL IV ONE (17:41)
[2023-01-11] MEDS ORDERED: SUCCINYLCHOLINE 200MG/10ML SYR ONE (17:41)
[2023-01-11] MEDS ORDERED: LIDOCAINE PF 100MG/5ML (2%) SYRINGE 5ML ONE (17:41)
[2023-01-11] MEDS ORDERED: ROCURONIUM 10MG/1ML SYR 10 MG/ML ML ONE (17:57)
[2023-01-11] MEDS ORDERED: SUGAMMADEX SODIUM 200 MG/2 ML VIAL IV ONE (18:15)
[2023-01-11] MEDS ORDERED: GUAIFENESIN SUGAR-FREE 100 MG/5 ML UDCUP PO PRN (20:30)
[2023-01-11] MEDS ORDERED: BISACODYL 10 MG SUPP.RECT RC PRN (20:30)
[2023-01-11] MEDS ORDERED: SUCRALFATE 1 GM TABLET PO PRN (20:30)
[2023-01-11] MEDS: TIMOLOL OU SCH (21:00)
[2023-01-11] MEDS: BRIMONIDINE TARTRATE OU SCH (21:00)
[2023-01-12 00:20] VITALS: BP 148/64; PULSE 71; RESP 18
[2023-01-12] MEDS: PANTOPRAZOLE 40 MG/VIAL IVP SCH ×2 (03:39→15:48)
[2023-01-12 04:15] VITALS: BP 146/57; PULSE 66; RESP 18
[2023-01-12] MEDS: 0.9%NACL 1000ML 1,000 ML IV SCH (05:21)
[2023-01-12 05:36] LABS: BASOPHILS # (AUTO) 0.03 K/uL (0.00-0.20); BASOPHILS % (AUTO) 0.4 % (0.0-5.0); EOSINOPHILS # (AUTO) 0.19 K/uL (0.00-0.70); EOSINOPHILS % (AUTO) 2.6 % (0.0-8.0); HEMATOCRIT 27.5 % (36-48); IMMATURE GRANULOCYTE ABSOLUTE 0.04 K/uL (0-1); LYMPHOCYTES # (AUTO) 2.4 K/uL (1.0-4.8); LYMPHOCYTES % (AUTO) 32.1 % (21.0-51.0); MEAN CORPUSCULAR HEMOGLOBIN 30.7 pg (27.0-33.0); MEAN CORPUSCULAR HGB CONC 30.5 g/dL (32.0-36.0); MEAN CORPUSCULAR VOLUME 100.4 fL (79-99); MONOCYTES # (AUTO) 0.6 K/uL (0.1-1.0); MONOCYTES % (AUTO) 8.2 % (3.0-13.0); NEUTROPHILS # (AUTO) 4.2 K/uL (1.8-7.7); NEUTROPHILS % (AUTO) 56.2 % (40.0-77.0); PLATELET COUNT (AUTO) 450 K/uL (130-400); RED BLOOD CELL COUNT(AUTO) 2.74 MIL/uL (4.00-5.50); RED CELL DISTRIBUTION WIDTH 14.7 % (11.0-15.5); WHITE BLOOD COUNT (AUTO) 7.4 K/uL (4.8-10.8)
[2023-01-12 05:57] LABS: BILIRUBIN,TOTAL 0.4 mg/dL (0.2-1.0); CREATININE 1.2 mg/dL (0.5-1.5); MAGNESIUM 2.1 mg/dL (1.80-2.40)
[2023-01-12] MEDS: ZOSYN 3.375GM +NS 50ML IV SCH ×2 (06:35→15:47)
[2023-01-12] MEDS ORDERED: CHOL500051 PO (07:52)
[2023-01-12 08:10] VITALS: O2SAT 93
[2023-01-12 08:38] VITALS: BP 136/65; PULSE 63; RESP 22
[2023-01-12] MEDS ORDERED: [UNRECOGNIZED DRUG - OTHER] PO SCH (09:00)
[2023-01-12] MEDS ORDERED: LYCOPENE PO SCH (09:00)
[2023-01-12] MEDS ORDERED: MULTIVITS MIN PO SCH (09:00)
[2023-01-12] MEDS ORDERED: (Cholecalciferol (Vitamin D3) (Vitamin D3) 125 MCG) PO SCH (09:00)
[2023-01-12] MEDS ORDERED: LUT PO SCH (09:00)
[2023-01-12] MEDS ORDERED: CYANOCOBALAMIN (VITAMIN B-12) 1,000 MCG TABLET PO SCH (09:00)
[2023-01-12] MEDS ORDERED: DOCUSATE SODIUM 100 MG CAP PO SCH (09:00)
[2023-01-12] MEDS: BRIMONIDINE TARTRATE OU SCH (09:00)
[2023-01-12] MEDS ORDERED: BIMATOPROST OD SCH (09:00)
[2023-01-12] MEDS ORDERED: FOLIC ACID 1 MG TABLET PO SCH (09:00)
[2023-01-12] MEDS: TIMOLOL OU SCH (09:00)
[2023-01-12 12:15] VITALS: BP 124/68; PULSE 55; RESP 20
[2023-01-12 16:00] VITALS: BP 123/95; PULSE 63; RESP 22
== END 2023-01-12 19:25 ==
LOC: EDH 12:32 → EDHIP 14:51 → INTOOBSV 14:51 → 3BH 20:15
PROVIDERS: ADMIT Internal Medicine; ATTEND Internal Medicine
DX: T84.028A Dislocation of other internal joint prosthesis, initial encounter (principal); S43.015A Anterior dislocation of left humerus, initial encounter; I49.3 Ventricular premature depolarization; M25.512 Pain in left shoulder; R60.0 Localized edema; G30.9 Alzheimer's disease, unspecified; F02.80 Dementia in other diseases classified elsewhere, unspecified severity, without behavioral disturbance, psychotic disturbance, mood disturbance, and anxiety; J18.9 Pneumonia, unspecified organism; N39.0 Urinary tract infection, site not specified; G93.40 Encephalopathy, unspecified; E66.9 Obesity, unspecified; F41.9 Anxiety disorder, unspecified; K21.9 Gastro-esophageal reflux disease without esophagitis; N17.9 Acute kidney failure, unspecified; I82.90 Acute embolism and thrombosis of unspecified vein; I21.9 Acute myocardial infarction, unspecified; E78.5 Hyperlipidemia, unspecified; I10 Essential (primary) hypertension; K20.90 Esophagitis, unspecified without bleeding; K92.2 Gastrointestinal hemorrhage, unspecified; Z96.612 Presence of left artificial shoulder joint; Z79.899 Other long term (current) drug therapy; Z68.27 Body mass index [BMI] 27.0-27.9, adult; X58.XXXA Exposure to other specified factors, initial encounter; Y93.89 Activity, other specified; Y92.89 Other specified places as the place of occurrence of the external cause; Y99.8 Other external cause status; Y79.2 Prosthetic and other implants, materials and accessory orthopedic devices associated with adverse incidents
CPT/HCPCS: 23655; 96365; 96366 ×2; 96375; 99285; 83036; 84443; 83735 ×2; 80053 ×2; 85025 ×2; 85610; 86850; 86900; 86901; 36415 ×2; 71045; 73030 ×2; 93970; 93005 ×2; 96376; 97161; 97530; A4606; J3475; J0330; J2001; J2704; J2543 ×4; C9113 ×3; J3490; G0378 ×8

== ENCOUNTER 2023-01-18 15:31 | Emergency (ER) | payer MEDICARE ==
[~2023-01-18] VITALS: Ht 157.5 cm; Wt 77.1 kg
[~2023-01-18 15:31] MED LIST changes: -BENZ-226 PO; -BRIN15DR4 OU; +CYAN100099 PO; +FOLI1 PO; -OMEP-420 PO; +PANT40GR PO; -PROM25TA7 PO; -QUET25TA PO; +SUCR1TAB2 PO
[2023-01-18] MEDS ORDERED: ONDANSETRON 4MG INJ IVP ONE (18:30)
[2023-01-18] MEDS ORDERED: MORPHINE 2 MG SYG IVP ONE (18:30)
[2023-01-19 03:21] VITALS: BP 131/62; PULSE 74; RESP 18; O2SAT 98
== END 2023-01-19 03:55 ==
LOC: EDH 15:31
DX: M25.512 Pain in left shoulder (principal); F41.9 Anxiety disorder, unspecified; K59.00 Constipation, unspecified; F03.90 Unspecified dementia, unspecified severity, without behavioral disturbance, psychotic disturbance, mood disturbance, and anxiety; K21.9 Gastro-esophageal reflux disease without esophagitis
CPT/HCPCS: 99285; 96374; 71045; 96375; 73070; 73090; 73060; 73030; J2270; J2405

== ENCOUNTER 2023-03-20 08:30 | Day surgery (SDC) | payer MEDICARE ==
[2023-03-20] VITALS (14 sets, daily range): BP systolic 110–147; BP diastolic 41–70; PULSE 59–78; RESP 10–17
[~2023-03-20] VITALS: Ht 172.7 cm; Wt 71.7 kg
[~2023-03-20 08:30] MED LIST changes: +0.9%NACL 1000ML 1,000 ML IV ONE; +ACET-66 PO; -ACET325T51 PO; +BENZ-39 PO; -BIMA12.5OS OD; -BISA10SU11 RC; +BUSP15 PO; +CRAN3875 PO; -DOCU240C25 PO; -GUAI100L37 PO; +HYD50 PO; +MAG-156 PO; +OMEP20CA12 PO; -PANT40GR PO; -SUCR1TAB2 PO
[2023-03-20] MEDS ORDERED: PROPOFOL 10 MG/ML 20ML VIAL IV ONE (11:21)
== END 2023-03-20 13:10 | disposition home or self-care (01) ==
LOC: ENDO 08:30 → DAH 08:30 → ENDO 13:10
PROVIDERS: ATTEND Internal Medicine Gastroenterology
DX: K92.0 Hematemesis (principal); K21.00 Gastro-esophageal reflux disease with esophagitis, without bleeding; J45.909 Unspecified asthma, uncomplicated; K29.50 Unspecified chronic gastritis without bleeding; K44.9 Diaphragmatic hernia without obstruction or gangrene; I10 Essential (primary) hypertension; K59.00 Constipation, unspecified; E78.5 Hyperlipidemia, unspecified; F06.8 Other specified mental disorders due to known physiological condition; D64.9 Anemia, unspecified; Z86.010 Personal history of colon polyps; Z90.49 Acquired absence of other specified parts of digestive tract; Z90.89 Acquired absence of other organs; Z98.890 Other specified postprocedural states
CPT/HCPCS: 43239; J7030 ×2; J2704; A4620; A4215 ×3; A4223; A7002; A4222; A4221; A4663; A4606; J3490

== ENCOUNTER 2023-07-02 10:04 | Emergency (ER) | payer MEDICARE ==
[~2023-07-02] VITALS: Ht 162.6 cm; Wt 63.5 kg
[~2023-07-02 10:04] MED LIST changes: -0.9%NACL 1000ML 1,000 ML IV ONE
[2023-07-02 15:02] VITALS: BP 122/80; PULSE 61; RESP 17; O2SAT 100
== END 2023-07-02 15:00 | disposition home or self-care (01) ==
LOC: EDH 10:04
DX: S51.811A Laceration without foreign body of right forearm, initial encounter (principal); I10 Essential (primary) hypertension; E78.00 Pure hypercholesterolemia, unspecified; Z79.899 Other long term (current) drug therapy; Z98.890 Other specified postprocedural states; Z88.8 Allergy status to other drugs, medicaments and biological substances; W06.XXXA Fall from bed, initial encounter; Y93.89 Activity, other specified; Y92.89 Other specified places as the place of occurrence of the external cause; Y99.8 Other external cause status
CPT/HCPCS: 70450; 71045; 72125; 72170; 73030